=== PATIENT | male | born 1990 | race Caucasian/White ===

== ENCOUNTER 2021-06-22 12:28 | Emergency (ER) | payer SELFPAY ==
[~2021-06-22] VITALS: Ht 180.3 cm; Wt 77.1 kg
[~2021-06-22 12:28] MED LIST: ALBU90OI INH; Prilosec20 MG PO; Vistaril25 MG PO
[2021-06-22] MEDS ORDERED: PRED20 PO (12:39)
== END 2021-06-22 12:41 | disposition home or self-care (01) ==
LOC: ER 12:28
DX: L23.7 Allergic contact dermatitis due to plants, except food (principal); F17.200 Nicotine dependence, unspecified, uncomplicated; Z91.018 Allergy to other foods
CPT/HCPCS: 99282

== ENCOUNTER 2022-02-11 11:30 | Emergency (ER) | payer SELFPAY ==
[~2022-02-11] VITALS: Ht 180.3 cm; Wt 72.6 kg
[~2022-02-11 11:30] MED LIST changes: +PRED20 PO
[2022-02-11] MEDS ORDERED: CLIN300 PO (11:34)
== END 2022-02-11 11:36 | disposition home or self-care (01) ==
LOC: ER 11:30
DX: K04.7 Periapical abscess without sinus (principal); F17.200 Nicotine dependence, unspecified, uncomplicated; Z91.018 Allergy to other foods
CPT/HCPCS: 99282

== ENCOUNTER 2022-06-03 14:34 | Emergency (ER) | payer SELFPAY ==
[~2022-06-03] VITALS: Ht 177.8 cm; Wt 72.6 kg
[~2022-06-03 14:34] MED LIST changes: +CLIN300 PO
[2022-06-03] MEDS ORDERED: CLIN150 PO (14:49)
[2022-06-03] MEDS ORDERED: PERIDEX15 ML MM (14:49)
== END 2022-06-03 14:51 | disposition home or self-care (01) ==
LOC: ER 14:34
DX: K04.7 Periapical abscess without sinus (principal); F17.200 Nicotine dependence, unspecified, uncomplicated
CPT/HCPCS: 99282

== ENCOUNTER 2022-06-08 17:59 | Emergency (ER) | payer SELFPAY ==
[~2022-06-08] VITALS: Ht 177.8 cm; Wt 72.6 kg
[~2022-06-08 17:59] MED LIST changes: +CLIN150 PO; +PERIDEX15 ML MM
[2022-06-08 19:09] LABS: Influenza A, PCR POSITIVE (NEGATIVE); Influenza B, PCR NEGATIVE (NEGATIVE); Resp Syncytial Virus, PCR NEGATIVE (NEGATIVE); SARS-Cov-2 (COVID-19) PCR, MMC NEGATIVE (NEGATIVE)
[2022-06-08 19:30] LABS: BASOPHILS ABSOLUTE AUTO 0.06 K/mm3 (0.00-0.23); BASOPHILS PERCENT AUTO 1 % (0-2); EOSINOPHILS ABSOLUTE AUTO 0.07 K/mm3 (0.00-0.68); EOSINOPHILS PERCENT AUTO 1 % (0-6); Hematocrit 43.2 % (37.0-53.0); Hemoglobin 15.3 g/dL (13.5-17.5); IMMATURE GRAN ABSOLUTE AUTO 0.04 K/mm3 (0.00-0.10); IMMATURE GRAN PERCENT AUTO 0 % (0-1); LYMPHOCYTES ABSOLUTE AUTO 0.37 K/mm3 (0.84-5.20); LYMPHOCYTES PERCENT AUTO 3 % (21-46); MONOCYTES ABSOLUTE AUTO 1.32 K/mm3 (0.16-1.47); MONOCYTES PERCENT AUTO 11 % (4-13); Mean Corpuscular HGB 30.3 pg (26.0-34.0); Mean Corpuscular HGB Conc 35.4 g/dL (31.5-36.5); Mean Corpuscular Volume 86 fL (80-100); Mean Platelet Volume 10.4 fL (9.1-12.4); NEUTROPHILS ABSOLUTE AUTO 10.29 K/mm3 (1.96-9.15); NEUTROPHILS PERCENT AUTO 85 % (41-73); Platelet Count 266 K/mm3 (150-400); RDW Coefficient Variation 12.9 % (11.7-14.2); RDW Standard Deviation 40.3 fL (35.1-46.3); Red Blood Cell Count 5.05 M/mm3 (4.30-5.90); White Blood Cell Count 12.15 K/mm3 (4.00-11.30)
[2022-06-08 19:36] LABS: Source, Urine Clean Catch
[2022-06-08 19:41] LABS: Appearance, Urine Clear (Clear); Bilirubin, Urine Neg (Neg); Blood, Urine Neg (Neg); Color, Urine Yellow (P-Yellow); Glucose Qualitative, Urine Neg (Neg); Ketones, Urine 4+ (Neg); Leukocyte Esterase, Urine 1+ (Neg); Nitrite, Urine Neg (Neg); Protein, Urine 2+ (Neg); Urobilinogen, Urine 2+ (Normal)
[2022-06-08 19:50] LABS: Red Blood Cells, Urine 0-2 /hpf (0-2)
[2022-06-08 19:50] LABS: Albumin, Blood 4.5 g/dL (3.4-5.0); Albumin/Globulin Ratio 1.2 (0.8-1.8); Bilirubin, Total 0.6 mg/dL (0.1-1.0); Bun/Creatinine Ratio 12.8 (12.0-20.0); Calcium, Blood 9.2 mg/dL (8.5-10.1); Creatinine, Blood 0.94 mg/dL (0.60-1.20); Globulin, Blood 3.7 g/dL (2.2-4.0); Potassium, Blood 3.4 mmol/L (3.5-5.5); Total Protein, Blood 8.2 g/dL (6.4-8.2)
[2022-06-08 19:51] LABS: Bacteria Mod /hpf; Mucus Light (0-Heavy); Squamous Epithelial Cells Rare /hpf (Few)
== END 2022-06-08 21:47 | disposition home or self-care (01) ==
LOC: ER 17:59
PROVIDERS: Physician Assistant; Student in an Organized Health Care Education/Training Program
DX: J10.1 Influenza due to other identified influenza virus with other respiratory manifestations (principal); N50.819 Testicular pain, unspecified; F17.210 Nicotine dependence, cigarettes, uncomplicated; Z91.018 Allergy to other foods; Z79.899 Other long term (current) drug therapy; Z20.822 Contact with and (suspected) exposure to COVID-19
CPT/HCPCS: 0241U; 36415; 74176; 76870; 80053; 81001; 83690; 85025; J1885; J2405; J7030

== ENCOUNTER 2022-11-07 08:31 | Emergency (ER) | payer OTHER ==
[~2022-11-07] VITALS: Ht 180.3 cm; Wt 79.4 kg
[2022-11-07 09:23] VITALS: BP 131/91
[2022-11-07] MEDS ORDERED: AMOCLA875 PO (09:48)
[2022-11-08] MEDS ORDERED: ONDA4ODT SL (15:49)
== END 2022-11-07 09:53 | disposition home or self-care (01) ==
LOC: ER 08:31
DX: K04.7 Periapical abscess without sinus (principal); Z91.018 Allergy to other foods; F17.200 Nicotine dependence, unspecified, uncomplicated; Z79.899 Other long term (current) drug therapy
CPT/HCPCS: 99282

== ENCOUNTER 2022-11-07 18:30 | Emergency (ER) | payer OTHER ==
[~2022-11-07] VITALS: Ht 180.3 cm; Wt 74.8 kg
[~2022-11-07 18:30] MED LIST changes: +AMOCLA875 PO
[2022-11-07 18:49] VITALS: BP 108/60
[2022-11-08] MEDS ORDERED: ONDA4ODT SL (15:49)
== END 2022-11-07 20:59 | disposition home or self-care (01) ==
LOC: ER 18:30
DX: K04.7 Periapical abscess without sinus (principal); F17.200 Nicotine dependence, unspecified, uncomplicated; Z91.018 Allergy to other foods; Z79.899 Other long term (current) drug therapy
CPT/HCPCS: 99282; A9270

== ENCOUNTER 2022-11-08 13:27 | Emergency (ER) | payer OTHER ==
[~2022-11-08] VITALS: Ht 180.3 cm; Wt 74.8 kg
[2022-11-08 13:36] VITALS: BP 154/99
[2022-11-08] MEDS ORDERED: ONDA4ODT SL (15:49)
== END 2022-11-08 16:00 | disposition home or self-care (01) ==
LOC: ER 13:27
DX: K04.7 Periapical abscess without sinus (principal); K03.81 Cracked tooth; Z91.018 Allergy to other foods; Z79.899 Other long term (current) drug therapy; F17.200 Nicotine dependence, unspecified, uncomplicated
CPT/HCPCS: 96372; 99282; J0696; J1790

== ENCOUNTER 2023-05-31 09:56 | Emergency (ER) | payer OTHER ==
[~2023-05-31] VITALS: Ht 180.3 cm; Wt 74.8 kg
[~2023-05-31 09:56] MED LIST changes: +ONDA4ODT SL
[2023-05-31 10:24] VITALS: BP 142/84
[2023-05-31] MEDS ORDERED: LIDO700A20 TOP (11:07)
[2023-05-31] MEDS ORDERED: Robaxin750 MG PO (11:07)
[2023-05-31] MEDS ORDERED: IBUP800 PO (11:07)
== END 2023-05-31 11:16 | disposition home or self-care (01) ==
LOC: ER 09:56
DX: R07.89 Other chest pain (principal); F17.200 Nicotine dependence, unspecified, uncomplicated; Z91.018 Allergy to other foods
CPT/HCPCS: 71046; 99283-25

== ENCOUNTER 2024-05-23 14:58 | Emergency (ER) | payer OTHER ==
[~2024-05-23] VITALS: Ht 177.8 cm; Wt 70.3 kg
[~2024-05-23 14:58] MED LIST changes: +CYCL10 PO; +IBUP800 PO; +LIDO700A20 TOP; +METO10 PO; +NAPR500 PO; +ONDA4ODT MM; +OSEL75CA PO; +Robaxin750 MG PO
[2024-05-23 15:02] VITALS: BP 156/96
[2024-05-23] MEDS ORDERED: LISDEXAMFETAMIN30 MG PO (15:15)
[2024-05-23] MEDS ORDERED: FLUOXETINE HCL20 M2 PO (15:15)
== END 2024-05-23 15:32 | disposition home or self-care (01) ==
LOC: ER 14:58
DX: S01.01XA Laceration without foreign body of scalp, initial encounter (principal); W01.10XA Fall on same level from slipping, tripping and stumbling with subsequent striking against unspecified object, initial encounter; Z91.018 Allergy to other foods; Z79.899 Other long term (current) drug therapy; F17.200 Nicotine dependence, unspecified, uncomplicated
CPT/HCPCS: 12001; 99282-25

== ENCOUNTER 2024-07-22 17:11 | Emergency (ER) | payer OTHER ==
[~2024-07-22] VITALS: Ht 177.8 cm; Wt 74.8 kg
[~2024-07-22 17:11] MED LIST changes: +FLUOXETINE HCL20 M2 PO; +LISDEXAMFETAMIN30 MG PO
[2024-07-22 17:29] VITALS: BP 127/74
[2024-07-22] MEDS ORDERED: AMOCLA875 PO (17:33)
== END 2024-07-22 17:34 | disposition home or self-care (01) ==
LOC: ER 17:11
DX: K04.7 Periapical abscess without sinus (principal); K02.9 Dental caries, unspecified
CPT/HCPCS: 99282

== ENCOUNTER 2024-10-11 19:53 | Emergency (ER) | payer OTHER ==
[~2024-10-11] VITALS: Ht 177.8 cm; Wt 74.8 kg
[~2024-10-11 19:53] MED LIST changes: +METHOCARBAMOL1000 MG PO; +Methocarbamol500 MG PO
[2024-10-11 21:00] LABS: Influenza A, PCR NEGATIVE (NEGATIVE); Influenza B, PCR NEGATIVE (NEGATIVE); SARS-Cov-2 (COVID-19) PCR, MMC NEGATIVE (NEGATIVE)
[2024-10-11] MEDS ORDERED: Diphth,Pertuss(Acell),Tet Vac 0.5 ML VIAL IM ONE (21:00)
[2024-10-11] MEDS ORDERED: RX Prepack Albuterol 1 PREPACK/6.7 GM INH UD ONE (21:00)
[2024-10-11 21:23] LABS: Resp Syncytial Virus, PCR POSITIVE (NEGATIVE)
== END 2024-10-11 21:13 | disposition home or self-care (01) ==
LOC: ER 19:53
PROVIDERS: Student in an Organized Health Care Education/Training Program
DX: S21.211A Laceration without foreign body of right back wall of thorax without penetration into thoracic cavity, initial encounter (principal); Z23 Encounter for immunization; J21.0 Acute bronchiolitis due to respiratory syncytial virus; F17.200 Nicotine dependence, unspecified, uncomplicated; Z79.899 Other long term (current) drug therapy; Z59.89 Other problems related to housing and economic circumstances; W31.89XA Contact with other specified machinery, initial encounter
CPT/HCPCS: 0241U; 90471; 90715; 99283-25; A9270

== ENCOUNTER 2025-02-23 10:50 | Emergency (ER) | payer OTHER ==
[~2025-02-23] VITALS: Ht 177.8 cm; Wt 77.1 kg
[2025-02-23 11:05] VITALS: BP 142/92
[2025-02-23] MEDS ORDERED: Ketorolac Tromethamine 15mg Vial IM ONE (11:10)
[2025-02-23] MEDS ORDERED: ACET500 PO (11:54)
[2025-02-23] MEDS ORDERED: Robaxin750 MG PO (11:54)
[2025-02-23] MEDS ORDERED: NAPROXEN250 M1 PO (11:54)
== END 2025-02-23 12:08 | disposition home or self-care (01) ==
LOC: ER 10:50
DX: M54.41 Lumbago with sciatica, right side (principal); Z79.899 Other long term (current) drug therapy
CPT/HCPCS: A9270; J1885